=== PATIENT | female | born 1935 | race Caucasian/White ===

== ENCOUNTER 2017-06-02 06:33 | Inpatient (IN) | payer OTHER ==
[2017-05-13 14:05] VITALS: BMI 29.0
--- NOTE | 2017-05-13 14:40 | PAT Medication Instructions ---
Service Date May 13, 2017. Current Home Medication List Acebutolol Hcl (Sectral Cap), 200 MG PO BID Folic Acid (Folvite), 1 MG PO QAM H-Rnfaclcfwvsp-Uetea-Vitamin B (Cerefolin Nac), 1 TAB PO QAM Levothyroxine Sodium (Levothyroxine Sodium), 1 TAB PO QAM Meloxicam (Mobic), 15 MG PO QAM Memantine (Namenda), 10 MG PO BID Methotrexate (Methotrexate), 6 TAB PO WEEK Metoprolol Tartrate (Lopressor) (Lopressor), 12.5 MG PO BID Rosuvastatin Calcium (Crestor), 40 MG PO QAM Tramadol (Ultram), 50 MG PO Q6H PRN for RN Valsartan (Diovan), 320 MG PO QAM [Rivastigmine], 1.5 MG PO BID Medication Instructions For Your Scheduled Surgery - Check with surgeon for instructions: Meloxicam (Mobic), 15 MG PO QAM - Per front end drupal developer instructions: Methotrexate (Methotrexate), 6 TAB PO WEEK - Hold the following medications the morning of surgery: Folic Acid (Folvite), 1 MG PO QAM A-Jwcvaqsadlwm-Yvdtt-Vitamin B (Cerefolin Nac), 1 TAB PO QAM Valsartan (Diovan), 320 MG PO QAM - Take the following medications the morning of surgery with a sip of water: Acebutolol Hcl (Sectral Cap), 200 MG PO BID Metoprolol Tartrate (Lopressor) (Lopressor), 12.5 MG PO BID Levothyroxine Sodium (Levothyroxine Sodium), 1 TAB PO QAM Rosuvastatin Calcium (Crestor), 40 MG PO QAM Tramadol (Ultram), 50 MG PO Q6H PRN for RN (okay to take up to 4 hours prior to surgery if needed) Memantine (Namenda), 10 MG PO BID [Rivastigmine], 1.5 MG PO BID - Take the following medications as scheduled the night before surgery: Acebutolol Hcl (Sectral Cap), 200 MG PO BID Metoprolol Tartrate (Lopressor) (Lopressor), 12.5 MG PO BID Tramadol (Ultram), 50 MG PO Q6H PRN for RN (if needed) Memantine (Namenda), 10 MG PO BID [Rivastigmine], 1.5 MG PO BID If you have any questions please call us at [phone] or [phone] or [phone]
--- NOTE | 2017-05-13 15:49 | DIAGNOSTIC IMAGING REPORT ---
CERVICAL SPINE 2 OR 3 VIEWS CLINICAL HISTORY: PREOP, RHEUMATOID ARTHRITIS COMPARISON STUDY: None. FINDINGS: Lateral, flexion, and extension views of the cervical spine were submitted for review. There is 2 mm of anterolisthesis of C3 on C4. This is not significant changed throughout flexion or extension. The remaining vertebral bodies are aligned. The C1-C2 interval is intact. Prevertebral soft tissues are maintained. Mild disc space narrowing at C4-C5 and C5-C6 with small endplate osteophytes. Mild to moderate facet degenerative changes within the cervical spine. Straightening of the cervical spine. IMPRESSION: 1. There is 2 mm of anterolisthesis of C3 on C4 which remains unchanged throughout flexion and extension. 2. Degenerative changes as described above. Electronically signed by: Alexei Gallardo M.D. 05/13/2017 3:48 PM Dictated Date/Time: 05/13/2017 3:46 PM
--- NOTE | 2017-05-13 15:49 | DIAGNOSTIC IMAGING REPORT ---
CHEST 2 VIEWS ROUTINE CLINICAL HISTORY: 81 years-old Female presenting with preoperative assessment, history of rheumatoid arthritis. TECHNIQUE: PA and lateral views of the chest were obtained. COMPARISON: None. FINDINGS: Atherosclerosis of aortic arch. Cardiac silhouette enlarged. Lungs and pleural spaces clear. Degenerative changes of the thoracic spine. Cholecystectomy clips noted. IMPRESSION: 1. Cardiomegaly. Otherwise no acute cardiopulmonary disease. Electronically signed by: Ovidio Mazariegos M.D. 05/13/2017 3:47 PM Dictated Date/Time: 05/13/2017 3:47 PM
[2017-05-13 15:57] LABS: BASO % 0.3 %; BASO ABS # 0.02 K/uL (0-0.2); EOS % 1.4 %; EOS ABS # 0.09 K/uL (0-0.5); HEMOGLOBIN 12.9 g/dL (12.0-16.0); IG# 0.01 K/uL (0.00-0.02); LYMPH % 18.2 %; LYMPH ABS # 1.19 K/uL (1.2-3.4); MEAN CELL VOLUME 96.2 fL (80-100); MEAN CORPUSCULAR HEMOGLOBIN 30.3 pg (25-34); MEAN CORPUSCULAR HGB CONC 31.5 g/dl (32-36); MEAN PLATELET VOLUME 12.1 fL (7.4-10.4); MONO % 15.3 %; NEUT % 64.6 %; NEUT ABS # 4.24 K/uL (1.4-6.5); PLATELET COUNT 201 K/uL (130-400); RED CELL DISTRIBUTION WIDTH CV 14.3 % (11.5-14.5); RED CELL DISTRIBUTION WIDTH SD 50.3 fL (36.4-46.3); WHITE BLOOD COUNT 6.55 K/uL (4.8-10.8)
[2017-05-13 16:05] LABS: CALCIUM 9.3 mg/dl (8.5-10.1); CREATININE 0.69 mg/dl (0.60-1.20); POTASSIUM 4.2 mmol/L (3.5-5.1)
[2017-05-13 16:07] LABS: PTT PATIENT 25.6 SECONDS (21.0-31.0)
[2017-05-14 06:26] LABS: HEMOGLOBIN A1C 5.3 % (4.5-5.6)
--- NOTE | 2017-05-21 15:52 | HISTORY & PHYSICAL EXAMINATION ---
DATE OF ADMISSION: 06/02/2017 CHIEF COMPLAINT: Right hip pain. HISTORY OF PRESENT ILLNESS: Elvie is an 81-year-old female with a 9-month history of right hip pain. The patient rates her pain 9/10. She has pain with her daily activities. She has limited standing and walking tolerance. Pain is worse with weightbearing. The patient has been using a walker for ambulation. She has been taking Tylenol, tramadol, Mobic without relief. She has failed conservative treatment and is scheduled for a right total hip arthroplasty. PAST MEDICAL HISTORY: Hypertension, hypercholesterolemia, RA, thyroid disease. She denies heart disease, diabetes or DVT. PAST SURGICAL HISTORY: Cholecystectomy, colostomy and colostomy reversal. SOCIAL HISTORY: The patient denies alcohol or tobacco use. She lives in an apartment with an elevator. She lives alone, but her son is planning to stay with her postoperatively. She is retired. FAMILY HISTORY: Negative for DVT. MEDICATIONS: Valsartan 320 mg daily, , rosuvastatin 40 mg, levothyroxine 75 mcg, methotrexate 2.5 mg, Meloxicam 7.5 mg, Zebutal 200 mg 2 tabs b.i.d., rivastigmine 1.5 mg one capsule b.i.d., metoprolol 25 mg. ALLERGIES: PENICILLIN CAUSES A RASH. REVIEW OF SYSTEMS: See HPI. Ten other systems reviewed, all negative. PHYSICAL EXAMINATION: VITAL SIGNS: Height 5 foot 5 inches, weight 180 pounds, BMI 30. GENERAL: This is a well developed, well nourished female who is alert and oriented x3. Mood and affect are appropriate. HEENT: Normocephalic, atraumatic. Mucous membranes are moist and intact. NECK: Supple without lymphadenopathy. HEART: Regular rate and rhythm without murmurs, rubs or gallops. LUNGS: Clear to auscultation without wheezes or rhonchi. ABDOMEN: Soft and nontender. Bowel sounds are equal and active. EXTREMITIES: No ecchymosis, redness or warmth. Thigh and calf are soft and nontender. Log roll of the hip reproduces pain in the groin. Range of motion is decreased. She is neurovascularly intact with +5/5 strength. X-RAY EXAMINATION: AP and lateral views show joint space narrowing and osteophyte formation. IMPRESSION: Degenerative joint disease, right hip. PLAN: The patient will be admitted for a right total hip arthroplasty. We will plan on aspirin for DVT prophylaxis. The patient is going to have [facility] for home physical therapy. She should stop her methotrexate 2 weeks prior to surgery and will resume 2 weeks postoperatively.
[~2017-06-02] VITALS: Ht 165.1 cm; Wt 81.2 kg
[2017-06-02] VITALS (9 sets, daily range): BP systolic 102–186; BP diastolic 61–83; PULSE 48–56; TEMP 36.3–37.2; O2SAT 93–100; Ht 165.1 cm; Wt 81.2 kg
[~2017-06-02 06:33] MED LIST: ACEB200C PO; ACETAMINOPHEN 500 MG TAB PO SCH; CeleBREX 200 MG CAP PO SCH; DEXAMETHASONE 4 MG TAB PO SCH; FAMOTIDINE 20 MG TAB PO SCH; FOLI1TAB8 PO; GABAPENTIN 300 MG CAP PO SCH; LACTATED RINGER'S 1000ML 1,000 ML IV SCH; LACTATED RINGER'S 1000ML 500 ML IV SCH; LEVO75TA5 PO; MELO7.5T5 PO; METH2.5T PO; METO25TA56 PO; METOCLOPRAMIDE HCL 10 MG TAB PO SCH; NMN10 PO; RIVASTIGMINE PO; ROPIVACAINE 5MG/ML 30 ML 150 MG, BUPIVACAINE 0.5% MPF INJ 30 ML, EpINEphrine HCL INJ 0.... INFIL SCH; ROSU40TA PO; TRAM-10 PO; VALS320T PO; VANCOMYCIN IV 1,250 MG in SODIUM CHLORIDE 0.9% 250ML 250 ML IV ONE; [UNRECOGNIZED DRUG - OTHER] PO
[2017-06-02] MEDS ORDERED: BUPIVACAINE 0.5 % 5 MG/1 ML PF 10ML VIAL ONE (06:55)
[2017-06-02] MEDS ORDERED: MIDAZOLAM HCL 1 MG/ML 2ML VIAL ONE (07:10)
[2017-06-02] MEDS ORDERED: FENTANYL CITRATE INJ 50 MCG/1 ML 2 ML VIAL ONE (07:10)
--- NOTE | 2017-06-02 07:10 | History & Physical Bridge Note ---
H&P Re-Evaluation Bridge Note: I have examined the patient, reviewed the History & Physical and in the interval since the performance of the History & Physical I have noted the following changes of clinical significance: No changes noted
[2017-06-02] MEDS ORDERED: ATROPINE SULFATE 0.1 MG/ML 5ML SYR IV PRN (08:45)
[2017-06-02] MEDS ORDERED: MEPERIDINE HCL 25 MG/ML CARP IV PRN (08:45)
[2017-06-02] MEDS ORDERED: LABETALOL HCL IV 5 MG/ML 20ML IV PRN (08:45)
[2017-06-02] MEDS ORDERED: FENTANYL CITRATE INJ 50 MCG/1 ML 2 ML VIAL IV PRN (08:45)
[2017-06-02] MEDS ORDERED: HYDROmorphone INJ 1 MG/ML SYR IV PRN (08:45)
[2017-06-02] MEDS ORDERED: EpHEDrine SULFATE INJ 50 MG/ML AMP IV PRN (08:45)
[2017-06-02] MEDS ORDERED: ONDANSETRON INJ 2 MG/ML 2 ML VIAL IV PRN ×2 (08:45→12:15)
[2017-06-02] MEDS ORDERED: ORTHO JOINT ANESTHETIC ONE (08:51)
[2017-06-02] MEDS ORDERED: POVIDONE-IODINE OP SOLN 30 ML BTL ONE (08:51)
[2017-06-02] MEDS ORDERED: BACITRACIN 50000 UNIT VIAL ONE (08:51)
[2017-06-02] MEDS: VALSARTAN 80 MG TAB PO SCH (09:00)
[2017-06-02] MEDS: METOPROLOL TARTRATE 25 MG TAB PO SCH ×2 (09:00→20:24)
[2017-06-02] MEDS: ROSUVASTATIN CALCIUM 20 MG TAB PO SCH (09:00)
[2017-06-02] MEDS: MEMANTINE 10 MG TAB PO SCH ×2 (09:00→20:29)
[2017-06-02] MEDS ORDERED: ALBUMIN HUMAN 5% 12.5 GM/250 ML VIAL IV ONE (11:03)
[2017-06-02] MEDS ORDERED: PROPOFOL IV EMULSION 10 MG/ML 20 ML VIAL IV ONE (11:23)
[2017-06-02] MEDS ORDERED: EpHEDrine SULFATE 50MG/5ML SYR ONE ×2 (11:23→11:54)
[2017-06-02] MEDS ORDERED: LIDOCAINE HCL 2% 2 ML VIAL (20MG/ML) ONE ×2 (11:23→11:54)
--- NOTE | 2017-06-02 11:53 | [facility] Post Operative Brief Note ---
Immediate Operative Summary Operative Date Jun 02, 2017. Pre-Operative Diagnosis Degenerative joint disease, right hip Post-Operative Diagnosis Right Hip DJD Procedure(s) Performed Right Anterior MAGDALENO Surgeon Dr. Maki Destination Coordinator Surgeon(s) Ezra Fernandez Pa-C Estimated Blood Loss 400 Findings Consistent with Post-Op Diagnosis Fluids (cc crystalloids) 1100 Specimens femoral head Drains None Anesthesia Type MAC Spinal Regional Complication(s) none Disposition Disposition: Recovery Room / PACU
[2017-06-02] MEDS ORDERED: OXYCODONE HCL IR 5 MG TAB (IMMEDIATE RELEASE) PO PRN (12:15)
[2017-06-02] MEDS ORDERED: VANCOMYCIN CONSULT ACTIVE PRN (12:15)
[2017-06-02] MEDS ORDERED: MoRPHine SULFATE 4 MG/ML 1 ML CARP\\VIAL IV PRN (12:15)
--- NOTE | 2017-06-02 13:04 | DIAGNOSTIC IMAGING REPORT ---
R HIP UNILATERAL 1 VIEW CLINICAL HISTORY: RT ANTERIOR TOTAL COMPARISON STUDY: None. FINDINGS: Total fluoroscopy time was 1 minute and 25 seconds. 2 fluoroscopic spot images of the right hip. There is a right total hip arthroplasty. The hardware is intact. No fracture or dislocation. IMPRESSION: Fluoroscopy provided for right total hip arthroplasty. No evidence for hardware combination. Electronically signed by: Alexei Gallardo M.D. 06/02/2017 1:03 PM Dictated Date/Time: 06/02/2017 1:02 PM
--- NOTE | 2017-06-02 13:12 | DIAGNOSTIC IMAGING REPORT ---
R PELVIS/UNILATERAL HIP 1 VIEW CLINICAL HISTORY: Postoperative evaluation. COMPARISON: None FINDINGS: Alignment of the total right hip arthroplasty is anatomic. 2 [address] screws are in place. There is no periprosthetic fracture or unexpected radiopaque body. Skin jonathan are noted. Severe left hip osteoarthritis is noted. IMPRESSION: Expected findings following total right hip arthroplasty. Electronically signed by: Mehran Hagen M.D. 06/02/2017 1:11 PM Dictated Date/Time: 06/02/2017 1:09 PM
--- NOTE | 2017-06-02 13:52 | Anesthesiology Progress Note ---
Anesthesia Post Op Note Date & Time Jun 02, 2017 at 13:51 Vital Signs Pain Intensity: 0 Vital Signs Past 12 Hours Date Time Temp Pulse Resp B/P (MAP) Pulse Ox O2 Delivery O2 Flow Rate FiO2 06/02/17 13:20 36.4 53 16 143/78 (99) 100 2.0 06/02/17 13:06 123/55 06/02/17 13:03 51 16 06/02/17 13:03 52 16 100 06/02/17 13:01 141/64 06/02/17 12:59 36.9 99 Nasal Cannula 3 06/02/17 12:58 56 16 06/02/17 12:58 57 16 100 06/02/17 12:56 133/66 06/02/17 12:53 54 13 06/02/17 12:53 51 13 100 06/02/17 12:52 56 14 06/02/17 12:52 56 14 100 06/02/17 12:51 130/58 06/02/17 12:47 52 21 06/02/17 12:47 52 21 100 06/02/17 12:42 51 12 99 06/02/17 12:42 54 12 06/02/17 12:41 121/63 06/02/17 12:37 53 13 06/02/17 12:37 49 13 99 06/02/17 12:36 137/62 06/02/17 12:32 49 16 06/02/17 12:32 53 16 100 06/02/17 12:31 128/67 06/02/17 12:27 54 14 06/02/17 12:27 55 14 100 06/02/17 12:26 138/55 06/02/17 12:23 131/57 06/02/17 12:22 61 16 06/02/17 12:22 58 16 99 06/02/17 12:22 36.5 56 16 131/57 100 Nasal Cannula 3 06/02/17 07:00 37.2 56 18 186/83 93 Room Air Notes Mental Status: alert / awake / arousable, participated in evaluation Pt Amnestic to Procedure: Yes Nausea / Vomiting: adequately controlled Pain: adequately controlled Airway Patency, RR, SpO2: stable & adequate BP & HR: stable & adequate Hydration State: stable & adequate Neuraxial Anesthesia: was administered, sensory block is resolving Anesthetic Complications: no major complications apparent
[2017-06-02] MEDS: RIVASTIGMINE TARTRATE (EXELON) 1.5 MG CAP PO SCH ×2 (15:09→20:29)
[2017-06-02] MEDS: ACETAMINOPHEN 500 MG TAB PO SCH ×2 (15:09→22:16)
[2017-06-02] MEDS: SODIUM CHLORIDE 0.9% 1000ML 1,000 ML IV SCH (15:12)
[2017-06-02] MEDS: ACEBUTOLOL HCL 200 MG CAP PO SCH ×2 (16:01→20:32)
--- NOTE | 2017-06-02 17:20 | Orthopedic Progress Note ---
Orthopedic Progress Note Date of Service Jun 02, 2017. Subjective Additional Notes: Post-operative progress note Patient seen sitting in bed, family at bedside, comfortable, pain well controlled, no acute issues. Objective NAD, AOx3 RLE: NVSI +EHL/FHL/TA/GS SILT grossly, CR< 2 seconds, +2 DP pulse, compartments soft NT, dressing CDI, incisional vac in place Date Time Temp Pulse Resp B/P (MAP) Pulse Ox O2 Delivery O2 Flow Rate FiO2 06/02/17 16:03 54 116/66 (83) 06/02/17 15:30 53 16 102/64 (77) 100 06/02/17 14:19 55 16 116/61 (79) 100 2.0 06/02/17 13:50 36.3 48 16 131/73 (92) 100 Nasal Cannula 2.0 06/02/17 13:20 36.4 53 16 143/78 (99) 100 2.0 06/02/17 13:20 Nasal Cannula 2.0 06/02/17 13:20 Nasal Cannula 2.0 06/02/17 13:06 123/55 06/02/17 13:03 51 16 06/02/17 13:03 52 16 100 06/02/17 13:01 141/64 06/02/17 12:59 36.9 99 Nasal Cannula 3 06/02/17 12:58 56 16 06/02/17 12:58 57 16 100 06/02/17 12:56 133/66 06/02/17 12:53 54 13 06/02/17 12:53 51 13 100 06/02/17 12:52 56 14 06/02/17 12:52 56 14 100 06/02/17 12:51 130/58 06/02/17 12:47 52 21 06/02/17 12:47 52 21 100 06/02/17 12:42 51 12 99 06/02/17 12:42 54 12 06/02/17 12:41 121/63 06/02/17 12:37 53 13 06/02/17 12:37 49 13 99 06/02/17 12:36 137/62 06/02/17 12:32 49 16 06/02/17 12:32 53 16 100 06/02/17 12:31 128/67 06/02/17 12:27 54 14 06/02/17 12:27 55 14 100 06/02/17 12:26 138/55 06/02/17 12:23 131/57 06/02/17 12:22 61 16 06/02/17 12:22 58 16 99 06/02/17 12:22 36.5 56 16 131/57 100 Nasal Cannula 3 06/02/17 07:00 37.2 56 18 186/83 93 Room Air Assessment & Plan Assessment: s/p Right anterior MAGDALENO Plan: -Vancomycin x 24 -DVT PPX: ASA BID -WBAT RLE -PT/OT -PO XR: well aligned well fixed total hip prosthesis, without evidence of fracture or dislocation -am labs -maintain incisional vac
[2017-06-02] MEDS: KETOROLAC TROMETHAMINE 15 MG/ML VIAL IV. SCH (18:09)
[2017-06-02] MEDS ORDERED: VANCOMYCIN IV 1,250 MG in SODIUM CHLORIDE 0.9% 250ML 250 ML IV SCH (20:00)
[2017-06-02] MEDS: DOCUSATE SODIUM 100 MG CAP PO SCH (20:29)
[2017-06-02] MEDS: SENNA 8.6 MG TAB PO SCH (20:29)
[2017-06-02] MEDS: ASPIRIN 325 MG ECTAB PO SCH (20:29)
[2017-06-03] MEDS: SODIUM CHLORIDE 0.9% 1000ML 1,000 ML IV SCH ×2 (00:01→10:18)
[2017-06-03] MEDS: KETOROLAC TROMETHAMINE 15 MG/ML VIAL IV. SCH ×3 (00:01→11:45)
[2017-06-03 02:51] VITALS: BP 117/68; PULSE 58; TEMP 36.6; O2SAT 91
[2017-06-03] MEDS: LEVOTHYROXINE 75 MCG TAB PO SCH (05:43)
[2017-06-03] MEDS: ACETAMINOPHEN 500 MG TAB PO SCH ×3 (05:44→22:04)
[2017-06-03 05:45] LABS: BASO % 0.1 %; BASO ABS # 0.01 K/uL (0-0.2); HEMATOCRIT 25.4 % (37-47); HEMOGLOBIN 8.5 g/dL (12.0-16.0); IG# 0.01 K/uL (0.00-0.02); LYMPH % 6.5 %; LYMPH ABS # 0.74 K/uL (1.2-3.4); MEAN CELL VOLUME 93.7 fL (80-100); MEAN CORPUSCULAR HEMOGLOBIN 31.4 pg (25-34); MEAN CORPUSCULAR HGB CONC 33.5 g/dl (32-36); MEAN PLATELET VOLUME 11.7 fL (7.4-10.4); MONO ABS # 1.02 K/uL (0.11-0.59); NEUT % 84.3 %; NEUT ABS # 9.57 K/uL (1.4-6.5); PLATELET COUNT 147 K/uL (130-400); RED CELL DISTRIBUTION WIDTH CV 13.9 % (11.5-14.5); RED CELL DISTRIBUTION WIDTH SD 47.4 fL (36.4-46.3); WHITE BLOOD COUNT 11.35 K/uL (4.8-10.8)
[2017-06-03 06:05] LABS: INR 1.1 (0.9-1.1)
[2017-06-03 06:23] LABS: CALCIUM 8.1 mg/dl (8.5-10.1); CREATININE 0.74 mg/dl (0.60-1.20); POTASSIUM 4.4 mmol/L (3.5-5.1)
--- NOTE | 2017-06-03 07:55 | Orthopedic Progress Note ---
Orthopedic Progress Note Date of Service Jun 03, 2017. Subjective Additional Notes: Patient seen sitting in chair, comfortable, pain well controlled, no acute issues overnight. Objective RLE NVSI +EHL/FHL/TA/GS SILT grossly, CR< 2 seconds, +2DP pulse, incisional vac intact Date Time Temp Pulse Resp B/P (MAP) Pulse Ox O2 Delivery O2 Flow Rate FiO2 06/03/17 02:51 36.6 58 14 117/68 (84) 91 Room Air 06/02/17 23:30 Room Air 06/02/17 23:09 36.4 55 12 107/64 (78) 94 Room Air 06/02/17 20:23 53 105/65 (78) 06/02/17 16:03 54 116/66 (83) 06/02/17 15:50 100 Nasal Cannula 2.0 06/02/17 15:30 53 16 102/64 (77) 100 06/02/17 14:19 55 16 116/61 (79) 100 2.0 06/02/17 13:50 36.3 48 16 131/73 (92) 100 Nasal Cannula 2.0 06/02/17 13:20 36.4 53 16 143/78 (99) 100 2.0 06/02/17 13:20 Nasal Cannula 2.0 06/02/17 13:20 Nasal Cannula 2.0 06/02/17 13:06 123/55 06/02/17 13:03 51 16 06/02/17 13:03 52 16 100 06/02/17 13:01 141/64 06/02/17 12:59 36.9 99 Nasal Cannula 3 06/02/17 12:58 56 16 06/02/17 12:58 57 16 100 06/02/17 12:56 133/66 06/02/17 12:53 54 13 06/02/17 12:53 51 13 100 06/02/17 12:52 56 14 06/02/17 12:52 56 14 100 06/02/17 12:51 130/58 06/02/17 12:47 52 21 06/02/17 12:47 52 21 100 06/02/17 12:42 51 12 99 06/02/17 12:42 54 12 06/02/17 12:41 121/63 06/02/17 12:37 53 13 06/02/17 12:37 49 13 99 06/02/17 12:36 137/62 06/02/17 12:32 49 16 06/02/17 12:32 53 16 100 06/02/17 12:31 128/67 06/02/17 12:27 54 14 06/02/17 12:27 55 14 100 06/02/17 12:26 138/55 06/02/17 12:23 131/57 06/02/17 12:22 61 16 06/02/17 12:22 58 16 99 06/02/17 12:22 36.5 56 16 131/57 100 Nasal Cannula 3 Laboratory Results 24 Hours: Test 06/03/17 05:20 White Blood Count 11.35 K/uL Red Blood Count 2.71 M/uL Hemoglobin 8.5 g/dL Hematocrit 25.4 % Mean Corpuscular Volume 93.7 fL Mean Corpuscular Hemoglobin 31.4 pg Mean Corpuscular Hemoglobin Concent 33.5 g/dl Platelet Count 147 K/uL Mean Platelet Volume 11.7 fL Neutrophils (%) (Auto) 84.3 % Lymphocytes (%) (Auto) 6.5 % Monocytes (%) (Auto) 9.0 % Eosinophils (%) (Auto) 0.0 % Basophils (%) (Auto) 0.1 % Neutrophils # (Auto) 9.57 K/uL Lymphocytes # (Auto) 0.74 K/uL Monocytes # (Auto) 1.02 K/uL Eosinophils # (Auto) 0.00 K/uL Basophils # (Auto) 0.01 K/uL Prothromb Time International Ratio 1.1 Prothrombin Time 11.4 SECONDS Assessment & Plan Assessment: s/p Right anterior MAGDALENO POD#1 Plan: -Vancomycin x 24 -DVT PPX: ASA BID -WBAT RLE -PT/OT -PO XR: well aligned well fixed total hip prosthesis, without evidence of fracture or dislocation -am labs: Hgb 8.5 -maintain incisional vac -DC planning: Home with , possibly today
[2017-06-03 08:12] VITALS: BP 120/58; PULSE 61; TEMP 36.7; O2SAT 95
[2017-06-03] MEDS ORDERED: SENN-61 PO (08:26)
[2017-06-03] MEDS ORDERED: CLB200 PO (08:26)
[2017-06-03] MEDS ORDERED: ASPEC325 PO (08:26)
[2017-06-03] MEDS ORDERED: ONDA-170 PO (08:26)
[2017-06-03] MEDS ORDERED: RXC5 PO (08:26)
[2017-06-03] MEDS ORDERED: ACET-24 PO (08:26)
--- NOTE | 2017-06-03 08:28 | Discharge Instructions ---
Discharge Instructions Date of Service Jun 03, 2017. Admission Reason for Admission: Right Hip Osteoarthritis Discharge Discharge Diagnosis / Problem: SP RIGHT MAGDALENO Discharge Goals Goal(s): Decrease discomfort, Improve function, Increase independence Activity Recommendations Activity Limitations: per Instructions/Follow-up section . Instructions / Follow-Up Instructions / Follow-Up ACTIVITY RECOMMENDATIONS: SELF CARE INSTRUCTIONS AFTER TOTAL HIP REPLACEMENT Until the incision and soft tissues around your hip have healed, there is a possibility that the hip prosthesis could dislocate. A. Observe the following precautions to prevent dislocation: 1. Don't bend your hip greater than 90 degrees. 2. Avoid crossing your legs or ankles while standing or lying. 3. Sit with your feet placed 6 inches apart. 4. When sitting, keep your knees below your hips. Sit on a firm surface, avoid deep, soft chairs and couches. Use an elevated toilet seat in the bathroom. 5. Don't bend over at the waist. Use a long handled shoehorn and a sock aid to help you put on your shoes and socks. A dental laboratory technology teacher can help you pickle water pump operator objects that are too high or too low to reach. 6. Keep car riding to a minimum for at least one month after surgery. B. Your balance may be shaky for a while. Use crutches or a walker until directed by your doctor. C. Use hand rails when walking on stairs. D. Wear low heeled shoes with non-slip soles. E. Be sure that your floors are free of things that could trip you - throw rugs , electrical cords, small objects. Avoid wet and waxed floors, especially with crutches and canes. F. Try to walk several times a day with rest periods between. G. Continue with all the exercises taught to you in the hospital. Again, make walking a part of your daily routine. SPECIAL CARE INSTRUCTIONS: VERY IMPORTANT TO READ AND REVIEW A. You may still be at risk for phlebitis and blood clots. 1. Wear surgical stockings (VITO hose) for 2 weeks after surgery to improve circulation and reduce swelling. 2. Take Aspirin 325 mg twice daily for 4 weeks or as directed by your doctor. This is your blood thinner. 3. High risk patients may be prescribed a stronger blood thinner if necessary. 4. If you are on Coumadin normally, your family doctor/ems driver should monitor your blood work. Expect a phone call the day of or the day after bloodwork is drawn to adjust your dosage. B. You must take antibiotics before having dental work, bladder, bowel and other surgery. Your doctor will provide you with a permanent card to carry describing precautions. C. Call [facility] if you have a fever, redness or swelling around the incision, cloudy drainage from incision, or sudden increase in pain in your hip, not relieved by your regular pain medication. D. Please call the office at if you have any concerns or questions about your operation or recovery. * YOU MAY SHOWER, NO TUB BATHS UNTIL CLEARED BY YOUR DOCTOR. * WEAR VITO HOSE 20 HOURS PER DAY FOR 2 WEEKS. * YOU SHOULD USE A WALKER OR CRUTCHES FOR 2-4 WEEKS. THIS WILL HELP PREVENT STRAIN ON YOUR HIP MUSCLE AND ALLOW IT TO HEAL PROPERLY. YOU MAY WEAN TO A CANE TOLERATED. * MOST PATIENTS WILL HAVE HOME NURSING FOR THERAPY. IF YOU DECIDE TO DO OUTPATIENT PHYSICAL THERAPY, PLEASE SCHEDULE THIS 3 TIMES PER WEEK. * Prevena- This is a large suction dressing covering your incision. This will help pull any excess drainage from the wound and allow your incision to heal properly. You may shower with this if you can keep the unit outside of the shower. If any bleeding or leakage is noted please call your doctor's office. This will remain on your incision for 7 days and then should be removed. This can be done yourself or by the home nursing staff if applicable. The entire unit is disposable once removed. Once removed, keep incision clean and dry. If redness or drainage is noted, please call your surgeon. FOLLOW UP VISIT: If appointment is not already scheduled: Please call [facility] to make a follow-up appointment for 2 weeks after your surgery at . Current Hospital Diet Patient's current hospital diet: AHA Diet (Heart Healthy) Discharge Diet Recommended Diet: Regular Diet Procedures Procedures Performed: right hip total arthroplasty Pending Studies Studies pending at discharge: no Laboratory Results Hemoglobin A1c Test 05/13/17 14:51 Range/Units Estimated Average Glucose 105 mg/dl Hemoglobin A1c 5.3 4.5-5.6 % Medical Emergencies . Who to Call and When: Medical Emergencies: If at any time you feel your situation is an emergency, please call 911 immediately. . Non-Emergent Contact Non-Emergency issues call your: Surgeon . "Provider Documentation" section prepared by Veronica Williamson. .
[2017-06-03] MEDS: METOPROLOL TARTRATE 25 MG TAB PO SCH ×2 (08:33→20:58)
[2017-06-03] MEDS: MULTIVITAMIN TAB PO SCH (08:34)
[2017-06-03] MEDS: MEMANTINE 10 MG TAB PO SCH ×2 (08:34→20:58)
[2017-06-03] MEDS: VALSARTAN 80 MG TAB PO SCH (08:34)
[2017-06-03] MEDS: ROSUVASTATIN CALCIUM 20 MG TAB PO SCH (08:35)
[2017-06-03] MEDS: RIVASTIGMINE TARTRATE (EXELON) 1.5 MG CAP PO SCH ×2 (08:35→20:58)
[2017-06-03] MEDS: ASPIRIN 325 MG ECTAB PO SCH ×2 (08:35→20:58)
[2017-06-03] MEDS: PANTOprazole SOD 40 MG TAB PO SCH (08:35)
[2017-06-03] MEDS: DOCUSATE SODIUM 100 MG CAP PO SCH ×2 (08:36→20:58)
[2017-06-03] MEDS: ACEBUTOLOL HCL 200 MG CAP PO SCH ×2 (08:36→20:58)
--- NOTE | 2017-06-03 10:37 | Clinical Documentation Query ---
Dr. MOORE TANISHA : CLINICAL DOCUMENTATION QUERY Patient is an 81 year old female who on 06/02 underwent R MAGDALENO. Preoperative H&H was 12.9 g/dl and 41.0%. POD #1, repeat values are 8.5 g/dl and 25.4%. EBL for the procedure was 400 ml's. Additionally, net I/O is positive for 1,470 ml's at this time. As appropriate, consider documentation as suggested below to capture the severity of illness and associated risk of mortality associated with this clinical information. Thank you. In your clinical opinion is this patient being managed for: ( X ) Acute blood loss and hemodilutional anemia ( ) Not Agree ( ) Other explanation of clinical findings (Please Explain. If no explanation given, this would be considered a no response.) ( ) Unable to determine ( ) Need to Discuss (Please call CDS via extension or qliq. If no interaction occurs this is considered a no response.) The medical record reflects the following clinical findings, treatment, and risk factors. Clinical Indicators: As above Treatment: Serial hematology, I/O Risk Factors: Acute perioperative blood losses, I/O Please clarify and document your clinical opinion in the progress notes and discharge summary. Terms such as "probable", "suspected", "likely", "questionable", "possible", or "still to be ruled out" are acceptable. IF IN AGREEMENT, YOU MUST DOCUMENT ABOVE DIAGNOSTIC STATEMENT IN DAILY PROGRESS NOTES AND DISCHARGE SUMMARY. This document is not part of the patient's record. Thank You, Ugo Mooney, RN [phone]
[2017-06-03 11:48] VITALS: BP 106/62; PULSE 61; TEMP 36.7; O2SAT 94
[2017-06-03 15:30] VITALS: BP 126/66; PULSE 61; TEMP 36.7; O2SAT 95
[2017-06-03 20:51] VITALS: BP 132/69; PULSE 76
[2017-06-03] MEDS: SENNA 8.6 MG TAB PO SCH (20:58)
[2017-06-03] MEDS: CeleBREX 200 MG CAP PO SCH (20:59)
[2017-06-03 23:31] VITALS: BP 118/66; PULSE 68; TEMP 36.6; O2SAT 94
[2017-06-04] MEDS: LEVOTHYROXINE 75 MCG TAB PO SCH (05:51)
[2017-06-04] MEDS: ACETAMINOPHEN 500 MG TAB PO SCH ×3 (05:51→22:21)
[2017-06-04 08:00] VITALS: BP 109/68; PULSE 62; TEMP 36.6; O2SAT 96
--- NOTE | 2017-06-04 08:09 | Orthopedic Progress Note ---
Orthopedic Progress Note Date of Service Jun 04, 2017. Subjective Post OP Day: 2 Reports: feeling well, Denies: chest pain, SOB, nausea / vomiting, light headedness, calf pain Objective calves soft nontender, N/V intact, capillary refill less than 2 sec., dressing C /D/I (PREVENA FOAM SATURAED WITH BLOOD. SOME BLOOD IN CANISTER.), incision C/D/I , A&O x3, toes mobile DC'D PREVENA DRESSING. INCISION CDI WITH DEJUAN. RE-DRESSED WITH 4X4S AND ABD. Date Time Temp Pulse Resp B/P (MAP) Pulse Ox O2 Delivery O2 Flow Rate FiO2 06/04/17 08:00 36.6 62 17 109/68 (82) 96 Room Air 06/04/17 07:10 Room Air 06/03/17 23:31 36.6 68 16 118/66 (83) 94 Room Air 06/03/17 23:14 Room Air 06/03/17 20:51 76 132/69 (90) 06/03/17 15:40 Room Air 06/03/17 15:30 36.7 61 16 126/66 (86) 95 Room Air 06/03/17 11:48 36.7 61 14 106/62 (77) 94 Room Air 06/03/17 08:12 36.7 61 13 120/58 (78) 95 Room Air Assessment & Plan Assessment: s/p Right anterior MAGDALENO POD#2 Post-op anemia - asymptomatic Plan: -Vancomycin x 24 -DVT PPX: ASA BID -WBAT RLE -PT/OT -PO XR: well aligned well fixed total hip prosthesis, without evidence of fracture or dislocation -am labs 06/03: Hgb 8.5 - asymptomatic post op anemia secondary to acute surgical blood loss and dilutional effect, continue to monitor. -INCISION VAC REMOVED. REPLACED WITH DRY DRESSING. WILL RECHECK IN A FEW HOURS. IF INCISION REMAINS DRY MAY CONSIDER REPLACEMENT PREVENA. IF CONTINUES TO DRAIN BLOOD MAY NEED TO CONTINUE FREQUENT STANDARD DRESSING CHANGES. -DC planning: SNF, REQUIRES 3 DAY STAY. PLAN ON TRANSFER THURSDAY.
[2017-06-04] MEDS: MULTIVITAMIN TAB PO SCH (08:31)
[2017-06-04] MEDS: PANTOprazole SOD 40 MG TAB PO SCH (08:31)
[2017-06-04] MEDS: ROSUVASTATIN CALCIUM 20 MG TAB PO SCH (08:31)
[2017-06-04] MEDS: CeleBREX 200 MG CAP PO SCH ×2 (08:32→20:54)
[2017-06-04] MEDS: RIVASTIGMINE TARTRATE (EXELON) 1.5 MG CAP PO SCH ×2 (08:32→20:54)
[2017-06-04] MEDS: VALSARTAN 80 MG TAB PO SCH (08:32)
[2017-06-04] MEDS: METOPROLOL TARTRATE 25 MG TAB PO SCH ×2 (08:33→20:50)
[2017-06-04] MEDS: ACEBUTOLOL HCL 200 MG CAP PO SCH ×2 (08:34→20:54)
[2017-06-04] MEDS: MEMANTINE 10 MG TAB PO SCH ×2 (08:34→20:54)
[2017-06-04] MEDS: ASPIRIN 325 MG ECTAB PO SCH ×2 (08:34→20:54)
[2017-06-04] MEDS: DOCUSATE SODIUM 100 MG CAP PO SCH ×2 (10:08→20:49)
--- NOTE | 2017-06-04 14:36 | Orthopedic Progress Note ---
Orthopedic Progress Note Date of Service Jun 04, 2017. Objective Hip wound with minimal drainage, prevena wound vac applied to surgical site. Date Time Temp Pulse Resp B/P (MAP) Pulse Ox O2 Delivery O2 Flow Rate FiO2 06/04/17 08:00 36.6 62 17 109/68 (82) 96 Room Air 06/04/17 07:10 Room Air 06/03/17 23:31 36.6 68 16 118/66 (83) 94 Room Air 06/03/17 23:14 Room Air 06/03/17 20:51 76 132/69 (90) 06/03/17 15:40 Room Air 06/03/17 15:30 36.7 61 16 126/66 (86) 95 Room Air Assessment & Plan Assessment: s/p Right anterior MAGDALENO POD#2 Plan: -Vancomycin x 24 -DVT PPX: ASA BID -WBAT RLE -PT/OT -PO XR: well aligned well fixed total hip prosthesis, without evidence of fracture or dislocation -am labs 06/03: Hgb 8.5 -DC planning: SNF, REQUIRES 3 DAY STAY. PLAN ON TRANSFER THURSDAY.
[2017-06-04 15:36] VITALS: BP 92/57; PULSE 68; TEMP 36.5; O2SAT 97
[2017-06-04 15:58] VITALS: BP 114/63
[2017-06-04 20:48] VITALS: BP 113/69; PULSE 57
[2017-06-04] MEDS: SENNA 8.6 MG TAB PO SCH (20:50)
[2017-06-04 22:58] VITALS: BP 124/69; PULSE 73; TEMP 36.7; O2SAT 96
[2017-06-05] MEDS: LEVOTHYROXINE 75 MCG TAB PO SCH (04:57)
[2017-06-05] MEDS: ACETAMINOPHEN 500 MG TAB PO SCH (04:57)
[2017-06-05 06:24] VITALS: BP 130/69; PULSE 62; TEMP 36.6; O2SAT 96
[2017-06-05] MEDS: METOPROLOL TARTRATE 25 MG TAB PO SCH (07:26)
[2017-06-05] MEDS: DOCUSATE SODIUM 100 MG CAP PO SCH (07:26)
[2017-06-05] MEDS: PANTOprazole SOD 40 MG TAB PO SCH (07:27)
[2017-06-05] MEDS: MULTIVITAMIN TAB PO SCH (07:27)
[2017-06-05] MEDS: ROSUVASTATIN CALCIUM 20 MG TAB PO SCH (07:27)
[2017-06-05] MEDS: ACEBUTOLOL HCL 200 MG CAP PO SCH (07:28)
[2017-06-05] MEDS: ASPIRIN 325 MG ECTAB PO SCH (07:28)
[2017-06-05] MEDS: VALSARTAN 80 MG TAB PO SCH (07:29)
[2017-06-05] MEDS: CeleBREX 200 MG CAP PO SCH (07:29)
[2017-06-05] MEDS: MEMANTINE 10 MG TAB PO SCH (07:30)
[2017-06-05] MEDS: RIVASTIGMINE TARTRATE (EXELON) 1.5 MG CAP PO SCH (07:30)
--- NOTE | 2017-06-05 07:56 | Orthopedic Progress Note ---
Orthopedic Progress Note Date of Service Jun 05, 2017. Subjective Post OP Day: 3 Reports: feeling well, Denies: chest pain, SOB, nausea / vomiting, light headedness, calf pain Objective calves soft nontender, N/V intact, hip located, capillary refill less than 2 sec., dressing C/D/I (PREVENA- DRY), A&O x3, toes mobile Date Time Temp Pulse Resp B/P (MAP) Pulse Ox O2 Delivery O2 Flow Rate FiO2 06/05/17 06:24 36.6 62 18 130/69 (89) 96 Room Air 06/04/17 23:15 Room Air 06/04/17 22:58 36.7 73 16 124/69 (87) 96 Room Air 06/04/17 20:48 57 113/69 (84) 06/04/17 15:58 114/63 (80) 06/04/17 15:36 36.5 68 16 92/57 (69) 97 Room Air 06/04/17 15:30 Room Air 06/04/17 08:00 36.6 62 17 109/68 (82) 96 Room Air Assessment & Plan Assessment: s/p Right anterior MAGDALENO POD#3 Plan: -Vancomycin x 24 -DVT PPX: ASA BID -WBAT RLE -PT/OT -PO XR: well aligned well fixed total hip prosthesis, without evidence of fracture or dislocation -am labs 06/03: Hgb 8.5 -DC planning: SNF, REQUIRES 3 DAY STAY. PLAN ON TRANSFER THURSDAY. NEW PREVENA PLACED. APPEARS DRY AND CLEAN SO FAR TODAY
--- NOTE | 2017-06-05 07:57 | Discharge Instructions ---
Discharge Instructions Date of Service Jun 05, 2017. Admission Reason for Admission: Right Hip Osteoarthritis Discharge Discharge Diagnosis / Problem: SP RIGHT MAGDALENO Discharge Goals Goal(s): Decrease discomfort, Improve function, Increase independence Activity Recommendations Activity Level: Assistance Required Therapies: Physical Therapy, Occupational Therapy . Additional Information Patient informed of condition: Yes Advance Directives: Yes DNR: No Level of Care: Acute Rehab Communicable Disease: No Prognosis: Stable Instructions / Follow-Up Instructions / Follow-Up ACTIVITY RECOMMENDATIONS: SELF CARE INSTRUCTIONS AFTER TOTAL HIP REPLACEMENT Until the incision and soft tissues around your hip have healed, there is a possibility that the hip prosthesis could dislocate. A. Observe the following precautions to prevent dislocation: 1. Don't bend your hip greater than 90 degrees. 2. Avoid crossing your legs or ankles while standing or lying. 3. Sit with your feet placed 6 inches apart. 4. When sitting, keep your knees below your hips. Sit on a firm surface, avoid deep, soft chairs and couches. Use an elevated toilet seat in the bathroom. 5. Don't bend over at the waist. Use a long handled shoehorn and a sock aid to help you put on your shoes and socks. A statistician theoretical can help you picked edge sewing machine operator objects that are too high or too low to reach. 6. Keep car riding to a minimum for at least one month after surgery. B. Your balance may be shaky for a while. Use crutches or a walker until directed by your doctor. C. Use hand rails when walking on stairs. D. Wear low heeled shoes with non-slip soles. E. Be sure that your floors are free of things that could trip you - throw rugs , electrical cords, small objects. Avoid wet and waxed floors, especially with crutches and canes. F. Try to walk several times a day with rest periods between. G. Continue with all the exercises taught to you in the hospital. Again, make walking a part of your daily routine. SPECIAL CARE INSTRUCTIONS: VERY IMPORTANT TO READ AND REVIEW A. You may still be at risk for phlebitis and blood clots. 1. Wear surgical stockings (VITO hose) for 2 weeks after surgery to improve circulation and reduce swelling. 2. Take Aspirin 325 mg twice daily for 4 weeks or as directed by your doctor. This is your blood thinner. 3. High risk patients may be prescribed a stronger blood thinner if necessary. 4. If you are on Coumadin normally, your family doctor/damper fitter should monitor your blood work. Expect a phone call the day of or the day after bloodwork is drawn to adjust your dosage. B. You must take antibiotics before having dental work, bladder, bowel and other surgery. Your doctor will provide you with a permanent card to carry describing precautions. C. Call [facility] if you have a fever, redness or swelling around the incision, cloudy drainage from incision, or sudden increase in pain in your hip, not relieved by your regular pain medication. D. Please call the office at if you have any concerns or questions about your operation or recovery. * YOU MAY SHOWER, NO TUB BATHS UNTIL CLEARED BY YOUR DOCTOR. * WEAR VITO HOSE 20 HOURS PER DAY FOR 2 WEEKS. * YOU SHOULD USE A WALKER OR CRUTCHES FOR 2-4 WEEKS. THIS WILL HELP PREVENT STRAIN ON YOUR HIP MUSCLE AND ALLOW IT TO HEAL PROPERLY. YOU MAY WEAN TO A CANE TOLERATED. * MOST PATIENTS WILL HAVE HOME NURSING FOR THERAPY. IF YOU DECIDE TO DO OUTPATIENT PHYSICAL THERAPY, PLEASE SCHEDULE THIS 3 TIMES PER WEEK. * Prevena- This is a large suction dressing covering your incision. This will help pull any excess drainage from the wound and allow your incision to heal properly. You may shower with this if you can keep the unit outside of the shower. If any bleeding or leakage is noted please call your doctor's office. This will remain on your incision for 7 days and then should be removed. This can be done yourself or by the home nursing staff if applicable. The entire unit is disposable once removed. Once removed, keep incision clean and dry. If redness or drainage is noted, please call your surgeon. FOLLOW UP VISIT: If appointment is not already scheduled: Please call [facility] to make a follow-up appointment for 2 weeks after your surgery at . Current Hospital Diet Patient's current hospital diet: AHA Diet (Heart Healthy) Discharge Diet Recommended Diet: Regular Diet Procedures Procedures Performed: right hip total arthroplasty Pending Studies Studies pending at discharge: no Laboratory Results Hemoglobin A1c Test 05/13/17 14:51 Range/Units Estimated Average Glucose 105 mg/dl Hemoglobin A1c 5.3 4.5-5.6 % Medical Emergencies . Who to Call and When: Medical Emergencies: If at any time you feel your situation is an emergency, please call 911 immediately. . Non-Emergent Contact Non-Emergency issues call your: Surgeon . . "Provider Documentation" section prepared by Veronica Williamson. . Core Measure Problem Core Measures: None
[2017-06-05 09:03] VITALS: BP 130/69; PULSE 62; TEMP 36.6; O2SAT 96
--- NOTE | 2017-06-07 15:00 | [facility] Operative Report ---
Operative Report Operative Date Jun 02, 2017. Pre-Operative Diagnosis Degenerative joint disease, right hip Post-Operative Diagnosis Right Hip DJD Procedure(s) Performed Right Anterior MAGDALENO Surgeon Dr. Maki Dipping Machine Operator Surgeon(s) Ezra Fernandez Pa-C Estimated Blood Loss 400 Findings see dictated op note Fluids 1100 Specimens femoral head Drains None Anesthesia Type MAC Spinal Regional Complication(s) none Disposition Recovery Room / PACU Indications The patient is a 81-year-old female who presents with severe progressive right hip DJD who has failed outpatient conservative treatments. I indicated the patient for a anterior total hip replacement and the risks and benefits were explained in detail which include but not limited to infection, bleeding, blood clot, damage to surrounding bone, nerves, vessels, soft tissue, hip dislocation , failure of the prosthesis, leg length discrepancy, need for additional surgery and . The patient agreed to proceed with replacement of the hip and informed consent was obtained. Appropriate clearances were obtained. Description of Procedure COMPONENTS USED: [employer] polar hip system: Acetabulum size 50, femur size 3 standard offset, femoral head 32+8, liner 32x50, acetabular screw 25mm x 2. DESCRIPTION OF PROCEDURE: Following satisfactory spinal anesthesia, the patient was placed supine on the OR table. The left leg was placed in the well leg [place] and the right leg in the traction device. The right leg was prepared with ChloraPrep and draped sterilely. Following a surgical time-out, an anterior approach in the interval between the sartorius and tensor muscles was completed. Circumflex femoral vessels were identified, tied and ligated. The anterior capsular fat pad was removed and the capsulotomy was performed revealing the arthritic femoral neck and head. A femoral neck cut was made with reciprocating saw and the bone fragments removed. The acetabular self- retraining retractor was placed. Acetabular reaming was completed under fluoroscopic guidance, a 50mm shell was impacted into an anatomic position and secured with a dome screw. Local anesthetic was placed and following irrigation , the polyethylene liner was placed. The femur was placed into position of external rotation, extension and adduction. Femoral canal was prepared up to the size 3 standard offset. Trial reduction with a 32+8 neck length head showed good soft tissue tension, leg lengths restored, and good fit and fill of the proximal canal using fluoroscopic landmarks. The hip was dislocated. The trial component was removed. The final implant was placed. The hip was irrigated and reduced. A Betadine soak was performed. After 3 minutes, the Betadine was irrigated. More local anesthetic was injected in the surround soft tissues. The capsule was then closed with 1-0 Vicryl interrupted. The fascia was closed with a running suture of #1 Vicryl, the subcutaneous tissues with 1 and 2-0 Vicryl and the skin with jonathan. Sterile dressing included adaptec and Pravena incisional vac. The patient tolerated the procedure well and was transported to PACU in stable condition. Due to the complex nature of the procedure, the entire surgery was performed with the operational assistance of Ezra Fernandez PA-C. The parts room assistant, under direct supervision, was involved in the actual performance of all aspects of the surgical procedure including patient positioning, hemostasis, tissue retraction, instrument management and wound closure. I attest to the content of the Intraoperative Record and any orders documented therein. Any exceptions are noted below.
--- NOTE | 2017-06-08 14:45 | DISCHARGE SUMMARY ---
DISCHARGE DIAGNOSIS: Degenerative joint disease, right hip. SECONDARY DIAGNOSES: Hypertension, hypercholesterolemia, rheumatoid arthritis, thyroid disease. CONSULTS: None. COMPLICATIONS: None. PROCEDURES: Right anterior total hip arthroplasty by Dr. Maki on 06/02/2017. BRIEF HISTORY: As dictated in history and physical. HOSPITAL SUMMARY: The patient was admitted on the above-noted date and had the above-noted surgery performed, which she tolerated well. On the first postoperative day, she was sitting up in a chair that morning was comfortable. Pain was well controlled. Neurovascular was intact. Incisional VAC was in place and cap refill is less than 2 seconds. Vital signs were stable and she was afebrile and hemoglobin was 8.5. She was started on physical therapy protocol and continued on DVT prophylaxis and pain management and plans were for home health services upon discharge. By her second postoperative day, she was feeling well. Calves are soft, nontender. Neurovascularly intact. Cap refill is less than 2 seconds. The Prevena foam was saturated with blood and there was some blood in the canister. This was removed and the incision was clean, dry and intact. There was redressed with 4 x 4's and an ABD. Vital signs were stable and she is afebrile. Hemoglobin was 8.5 and she was asymptomatic with her postop anemia secondary to acute surgical loss and dilution effect. Plans were to continue to follow. Her incision vac was removed and plans were to recheck in a few hours and if it remains dry, a new Prevena will be applied. She was decided [facility] and would require a 3-day stay and she was continued on her protocol. By 06/04, her hip wound had minimal drainage and a Prevena new wound VAC was applied to the surgical site. Vital signs were stable. She is afebrile and she was otherwise remaining stable and continued on her protocol. By 06/05/2017, she was feeling well and had no complaints. Calves are soft, nontender. Neurovascularly intact. Dressings clean, dry and intact. Prevena was dry. Toes were mobile and she remained stable and it was felt that she could be transferred to penitentiary facility for further physical therapy and care. For further review, please see chart. LAB AND X-RAY DATA: As per chart. DISCHARGE INSTRUCTIONS: The patient was discharged to a penitentiary facility on 06/05/2017. DIET: Heart healthy. ACTIVITY: PT and OT protocols for MAGDALENO. Follow MAGDALENO instruction sheets and special care instructions as noted. Follow up with Dr. Maki in 2 weeks. DISCHARGE MEDICATIONS: Acetaminophen 1000 mg p.o. q. 8 hours for 30 days, aspirin 325 mg p.o. b.i.d. for 30 days, Celebrex 200 mg p.o. b.i.d. for 30 days, Zofran 8 mg p.o. q. 8 hours p.r.n. nausea, oxycodone 5-10 mg p.o. q. 4 hours p.r.n., senna 17.2 mg p.o. at bedtime. Resume home meds as listed. Stop taking Meloxicam and methotrexate.
== END 2017-06-05 09:55 | DRG 470 ==
LOC: C.ACU 06:33 → C.3E 06:57 → ENRESERV 12:43
PROVIDERS: ADMIT Orthopaedic Surgery; ATTEND Orthopaedic Surgery
PROC: 0SR90JZ Replacement of Right Hip Joint with Synthetic Substitute, Open Approach (ICD-10-PCS; principal; 2017-06-02 09:00)
DX: M16.11 Unilateral primary osteoarthritis, right hip (principal); I10 Essential (primary) hypertension; E78.5 Hyperlipidemia, unspecified; M06.9 Rheumatoid arthritis, unspecified; E07.9 Disorder of thyroid, unspecified; Z88.0 Allergy status to penicillin